=== PATIENT | female | born 1995 | race Caucasian/White ===

== ENCOUNTER 2020-09-12 20:15 | Emergency (ER) | payer OTHER ==
[~2020-09-12] VITALS: Ht 152.4 cm; Wt 55.6 kg
[2020-09-12] MEDS ORDERED: NS 1,000 ML IV ONE (20:40)
[2020-09-12] MEDS ORDERED: ACETAMINOPHEN 325 MG TAB PO ONE (20:40)
[2020-09-12 21:08] LABS: BASO % 0.2 % (0.0-1.0); EOS % 0.1 % (0.0-3.0); LYMPH # 0.4 10^3/uL (1.5-5.0); LYMPH % 3.2 % (24.0-44.0); MEAN CORPUSCULAR HEMOGLOBIN 31.5 pg (27.0-33.0); MEAN CORPUSCULAR VOLUME 92.5 fl (80.0-96.0); MONO # 0.7 10^3/uL (0.0-0.8); MONO % 5.6 % (2.0-8.0); NEUTROPHILS % 90.5 % (36.0-66.0); PLATELET COUNT, AUTOMATED 264 10^3/uL (150-450); RED BLOOD COUNT 5.08 10^6/uL (4.00-5.40); WHITE BLOOD COUNT 13.3 10^3/uL (4.0-10.0)
[2020-09-12 21:38] LABS: ALBUMIN 4.6 GM/DL (3.2-5.2); ALT/SGPT 20 U/L (12-78); BILIRUBIN,TOTAL 0.7 MG/DL (0.2-1.0); BLOOD UREA NITROGEN 10 MG/DL (7-18); CALCIUM LEVEL 9.8 MG/DL (8.5-10.1); CARBON DIOXIDE LEVEL 27 MEQ/L (21-32); CHLORIDE LEVEL 104 MEQ/L (98-107); GLOMERULAR FILTRATION RATE > 60.0 (>60); GLUCOSE, FASTING 93 MG/DL (70-100); POTASSIUM SERUM 3.8 MEQ/L (3.5-5.1); SODIUM LEVEL 137 MEQ/L (136-145); TOTAL PROTEIN 8.1 GM/DL (6.4-8.2)
[2020-09-12 21:41] LABS: RSV AMPLIFICATION NEGATIVE (NEGATIVE)
[2020-09-12] MEDS ORDERED: IBUPROFEN 600MG TAB PO ONE (21:45)
--- NOTE | 2020-09-12 22:39 | REPVR ---
PROCEDURE INFORMATION: Exam: XR Chest Exam date and time: 09/12/2020 10:06 PM Age: 25 years old Clinical indication: Other: Fever TECHNIQUE: Imaging protocol: XR of the chest. Views: 2 views. COMPARISON: No relevant prior studies available. FINDINGS: Lungs: Unremarkable. No consolidation. Pleural spaces: Unremarkable. No pleural effusion. No pneumothorax. Heart/Mediastinum: Unremarkable. No cardiomegaly. Bones/joints: Unremarkable. IMPRESSION: No acute findings. Electronically signed by: Arpit Oliver On 09/12/2020 22:39:14 PM
[2020-09-12 23:15] VITALS: BP 98/53
== END 2020-09-12 23:30 | disposition home or self-care (01) ==
LOC: M ED 20:15
DX: B34.8 Other viral infections of unspecified site (principal); R09.81 Nasal congestion; R50.9 Fever, unspecified

== ENCOUNTER 2022-03-08 06:10 | Emergency (ER) | payer OTHER ==
[~2022-03-08] VITALS: Ht 152.4 cm; Wt 46.8 kg
[2022-03-08 06:11] VITALS: BP 119/69
[2022-03-08 07:57] LABS: URINE PREG TEST NEGATIVE (NEGATIVE)
== END 2022-03-08 11:17 | disposition left against medical advice (07) ==
LOC: M ED 06:10
DX: Z53.21 Procedure and treatment not carried out due to patient leaving prior to being seen by health care provider (principal)